=== PATIENT | male | born 1935 | race Two or more races ===

== ENCOUNTER 2017-10-16 13:50 | Emergency (ER) | payer OTHER ==
[~2017-10-16] VITALS: Ht 172.7 cm; Wt 111.0 kg
[2017-10-16] MEDS ORDERED: methylPREDNISolone SOD SUCC 125 MG/2 ML IVPush ONE (14:30)
[2017-10-16] MEDS ORDERED: SODIUM CHLORIDE 0.9% 1,000ML IVBOLUS ONE (14:30)
[2017-10-16] MEDS ORDERED: FAMOTIDINE 20 MG/2 ML IVPush ONE (14:30)
[2017-10-16] MEDS ORDERED: SODIUM CHLORIDE FLUSH 10ML SYR IVF ONE (14:30)
[2017-10-16] MEDS ORDERED: DIPHENHYDRAMINE 50 MG/ML, 1ML IVPush ONE (14:30)
[2017-10-16] MEDS ORDERED: methylPREDNISolone SOD SUCC 125 MG/2 ML ONE (15:05)
[2017-10-16] MEDS ORDERED: DIPHENHYDRAMINE 50 MG/ML, 1ML ONE (15:05)
[2017-10-16] MEDS ORDERED: FAMOTIDINE 20 MG/2 ML ONE (15:06)
[2017-10-16 15:16] LABS: BASOPHILS # (AUTO) 0.03 x10^3/uL (0-0.1); BASOPHILS % (AUTO) 1 % (0-1); EOSINOPHILS # (AUTO) 0.02 x10^3/uL (0-0.4); EOSINOPHILS % (AUTO) 0 % (1-7); LYMPHOCYTES % (AUTO) 24 % (22-44); MD NO; MEAN CORPUSCULAR HEMOGLOBIN 29.5 pg (27.5-34.5); MEAN CORPUSCULAR HGB CONC 33.3 g/dL (33.2-36.2); MEAN CORPUSCULAR VOLUME 88.6 fL (81-97); MEAN PLATELET VOLUME 8.8 fL (7.4-10.4); MONOCYTES # (AUTO) 0.53 x10^3/uL (0.2-0.8); MONOCYTES % (AUTO) 9 % (2-9); NEUTROPHILS # (AUTO) 4.16 x10^3/uL (1.8-6.8); NEUTROPHILS % (AUTO) 67 % (42-75); PLATELET COUNT 177 x10^3/uL (130-400); RED CELL DISTRIBUTION WIDTH 13.4 % (9.4-14.8)
[2017-10-16 15:21] LABS: ANION GAP 7 mmol/L (5-15); CALCIUM 9.2 mg/dL (8.5-10.1); CHLORIDE 102 mmol/L (98-107); CREATININE 1.31 mg/dL (0.7-1.3)
[2017-10-16 16:33] LABS: MICROSCOPIC INDICATED
[2017-10-16 16:34] LABS: CULTURE INDICATED? YES
[2017-10-16] MEDS ORDERED: ACETAMINOPHEN 500 MG TABLET ONE (16:58)
[2017-10-16] MEDS ORDERED: ACETAMINOPHEN 500 MG TABLET PO ONE (17:00)
[2017-10-16 17:26] VITALS: BP 131/41
== END 2017-10-16 17:29 | disposition home or self-care (01) ==
LOC: ED 17:01
DX: N30.90 Cystitis, unspecified without hematuria (principal); T78.3XXA Angioneurotic edema, initial encounter; T46.4X5A Adverse effect of angiotensin-converting-enzyme inhibitors, initial encounter; I10 Essential (primary) hypertension; E78.5 Hyperlipidemia, unspecified; E11.9 Type 2 diabetes mellitus without complications; Z87.891 Personal history of nicotine dependence
CPT/HCPCS: 36415; 71046; 80048; 81001; 83605; 84145; 85025; 87040; 87077; 87086; 93005; 96361; 96374; 96375; 99285; J1200; J2930; J7030; 87186; S0028

== ENCOUNTER 2018-03-23 16:26 | Emergency (ER) | payer OTHER ==
[~2018-03-23] VITALS: Ht 172.7 cm; Wt 116.0 kg
[2018-03-23] MEDS ORDERED: DIPHENHYDRAMINE 50 MG/ML, 1ML IVPush ONE (17:30)
[2018-03-23] MEDS ORDERED: FAMOTIDINE 20 MG/2 ML IVPush ONE (17:30)
[2018-03-23] MEDS ORDERED: methylPREDNISolone SOD SUCC 125 MG/2 ML IVPush ONE (17:30)
[2018-03-23] MEDS ORDERED: FAMOTIDINE 20 MG/2 ML ONE (17:59)
[2018-03-23] MEDS ORDERED: methylPREDNISolone SOD SUCC 125 MG/2 ML ONE (17:59)
[2018-03-23 19:54] VITALS: BP 145/68
== END 2018-03-23 19:56 | disposition home or self-care (01) ==
LOC: ED 18:48
DX: T78.3XXA Angioneurotic edema, initial encounter (principal); E11.9 Type 2 diabetes mellitus without complications; E78.5 Hyperlipidemia, unspecified; I10 Essential (primary) hypertension; Z79.899 Other long term (current) drug therapy
CPT/HCPCS: 71046; 96374; 96375; 99284; J1200; J2930; S0028